=== PATIENT | male | born 1995 | race Caucasian/White ===

== ENCOUNTER 2017-09-01 22:11 | Emergency (ER) | payer OTHER ==
[~2017-09-01] VITALS: Ht 175.3 cm; Wt 94.3 kg
[~2017-09-01 22:11] MED LIST: NOHOMEMEDICATIONS
[2017-09-01 23:52] LABS: URINE BILIRUBIN NEGATIVE (Negative); URINE BLOOD NEGATIVE (Negative); URINE CLARITY CLEAR; URINE COLOR YELLOW; URINE GLUCOSE-RANDOM NEGATIVE (Negative); URINE KETONES TRACE (Negative); URINE LEUKOCYTES-REFLEX NEGATIVE (Negative); URINE NITRITE-REFLEX NEGATIVE (Negative); URINE PROTEIN NEGATIVE (Negative); URINE SPECIFIC GRAVITY >= 1.030 (1.005-1.030); URINE UROBILINOGEN 0.2 E.U./dl (0.2-1.0)
[2017-09-02 00:01] VITALS: BP 136/80
== END 2017-09-02 00:03 | disposition home or self-care (01) ==
LOC: M.ERS 22:11
PROVIDERS: Physician Assistant
DX: I86.1 Scrotal varices (principal); N50.811 Right testicular pain; Z88.1 Allergy status to other antibiotic agents; Z87.438 Personal history of other diseases of male genital organs